=== PATIENT | female | born 1955 | race Caucasian/White ===

== ENCOUNTER 2017-01-10 09:30 | Inpatient (IN) | payer MEDICAID ==
[~2017-01-10] VITALS: Ht 165.1 cm; Wt 84.9 kg
[2017-01-10 10:18] LABS: Basophils # (auto) 0.2 uL; Basophils % (auto) 1.6 % (0.0-2.0); Eosinophils # (auto) 0 uL; Eosinophils % (auto) 0.1 % (0.0-7.0); Hematocrit 32.8 % (36.0-46.0); Hemoglobin 11.3 g/dL (12.2-16.2); Lymphocytes # (auto) 1.8 uL; Lymphocytes % (auto) 13.4 % (10.0-50.0); Mean Corpuscular Hemoglobin 31.3 pg (28.0-32.0); Mean Corpuscular Hgb Conc. 34.4 g/dL (32.0-36.0); Mean Corpuscular Volume 91.1 fL (80.0-100.0); Mean Platelet Volume 7.9 fL (7.4-10.4); Monocytes # (auto) 0.5 uL; Neutrophils # (auto) 10.7 uL; Neutrophils % (auto) 80.9 % (37.0-80.0); Platelet Count (auto) 617 10^3/uL (140-450); Red Cell Distribution Width 13.3 % (11.6-16.0); White Blood Cell 13.2 10^3/uL (4.4-10.8)
[2017-01-10] MEDS ORDERED: PROCHLORPERAZINE EDISYLATE 5 MG/ML 2ML VIAL IV ONE (10:30)
[2017-01-10] MEDS ORDERED: SODIUM CHLORIDE 0.9% 500 ML IVB ONE (10:30)
[2017-01-10] MEDS ORDERED: HYDROmorphone HCL 2 MG/ML VL IV ONE (10:30)
[2017-01-10] MEDS ORDERED: PANTOPRAZOLE SODIUM 40 MG/10 ML VIAL IV ONE ×3 (10:30→13:00)
[2017-01-10 10:43] LABS: Albumin 2.9 g/dL (3.4-5.0); Alkaline Phosphatase 91 U/L (45-117); Anion Gap 15 (5-15); Aspartate Aminotransferase 18 U/L (15-37); BUN/Creatinine Ratio 28.6; Bilirubin, Total 2.4 mg/dL (0.2-1.0); Blood Urea Nitrogen 16 mg/dL (7-18); Calcium 9.2 mg/dL (8.5-10.1); Carbon Dioxide 24 mmol/L (21-32); Chloride 100 mmol/L (98-107); GFR African American 142 mL/min; GFR Non-African American 118 mL/min; Glucose 110 mg/dL (74-106); Magnesium 2.2 mg/dL (1.6-2.6); Potassium 3.3 mmol/L (3.5-5.1); Sodium 139 mmol/L (136-145); Total Protein 7.5 g/dL (6.4-8.2)
[2017-01-10 11:20] LABS: Amylase 111 U/L (25-115)
[2017-01-10] MEDS ORDERED: NITROGLYCERIN 0.4 MG SL TAB SL PRN (12:30)
[2017-01-10] MEDS ORDERED: MORPHINE SULF INJ 2 MG/ML SYRINGE 1ML IV PRN (12:30)
[2017-01-10] MEDS: POTASSIUM CHL 20MEQ/100ML 100 ML IV SCH ×2 (12:30→21:10)
[2017-01-10] MEDS ORDERED: MORPHINE SULFATE 4 MG/ML SYRG IV PRN (12:30)
[2017-01-10] MEDS ORDERED: cefTRIAXone 1GM/50ML D5W 50 ML IV ONE (12:30)
[2017-01-10] MEDS: SODIUM CHLORIDE 0.9% 1,000 ML IV SCH ×2 (13:02→20:20)
[2017-01-10 13:38] LABS: INR 1.06 (0.9-1.15); Partial Thromboplastin Time 27.1 sec (22.64-33.71); Prothrombin Time 10.9 sec (9.37-12.3)
[2017-01-10] MEDS: PROMETHAZINE HCL 25 MG/ML 1ML IV PRN ×2 (14:42→22:37)
[2017-01-10 19:14] LABS: Hematocrit 32.1 % (36.0-46.0); Hemoglobin 10.8 g/dL (12.2-16.2)
[2017-01-10] MEDS: MORPHINE SULF INJ 2 MG/ML SYRINGE 1ML IV PRN ×2 (19:19→19:58)
[2017-01-10 20:30] VITALS: BP 127/71
[2017-01-10] MEDS: metroNIDAZOLE 500MG/100ML 100 ML IV SCH (20:59)
[2017-01-10] MEDS ORDERED: POTASSIUM CHL 20MEQ/100ML 100 ML IV ONE (21:02)
[2017-01-10 22:00] VITALS: BP 127/71
[2017-01-11] VITALS (7 sets, daily range): BP systolic 121–139; BP diastolic 64–75
[2017-01-11 01:40] LABS: Hematocrit 30.7 % (36.0-46.0); Hemoglobin 10.3 g/dL (12.2-16.2)
[2017-01-11 01:47] LABS: Urine Color Brown (Yellow); Urine Glucose Normal (Normal); Urine Mucus FEW (None Seen); Urine RBC 4 /hpf (0 - 4); Urine Squamous Epithelial Cell FEW /hpf (<5); Urine Urobilinogen Normal (Negative)
[2017-01-11 01:53] LABS: Urine Bilirubin 2+ (Negative); Urine Blood 1+ /uL (Negative); Urine Ketone 3+ (Negative); Urine Nitrite POSITIVE (Negative)
[2017-01-11] MEDS ORDERED: POTASSIUM CHL 20MEQ/100ML 100 ML IV ONE (02:15)
[2017-01-11] MEDS: POTASSIUM CHL 20MEQ/100ML 100 ML IV SCH (02:22)
[2017-01-11] MEDS: SODIUM CHLORIDE 0.9% 1,000 ML IV SCH ×4 (02:22→21:40)
[2017-01-11] MEDS: metroNIDAZOLE 500MG/100ML 100 ML IV SCH ×5 (03:28→20:45)
[2017-01-11 06:09] LABS: Basophils # (auto) 0.1 uL; Basophils % (auto) 0.5 % (0.0-2.0); Eosinophils # (auto) 0.1 uL; Eosinophils % (auto) 0.8 % (0.0-7.0); Hematocrit 31.2 % (36.0-46.0); Hemoglobin 10.4 g/dL (12.2-16.2); Lymphocytes # (auto) 1.8 uL; Lymphocytes % (auto) 16.3 % (10.0-50.0); Mean Corpuscular Hemoglobin 31.4 pg (28.0-32.0); Mean Corpuscular Hgb Conc. 33.5 g/dL (32.0-36.0); Mean Corpuscular Volume 93.6 fL (80.0-100.0); Monocytes # (auto) 0.7 uL; Monocytes % (auto) 6.5 % (0.0-12.0); Neutrophils # (auto) 8.6 uL; Neutrophils % (auto) 75.9 % (37.0-80.0); Platelet Count (auto) 555 10^3/uL (140-450); Red Cell Distribution Width 13.9 % (11.6-16.0); White Blood Cell 11.3 10^3/uL (4.4-10.8)
[2017-01-11 06:16] LABS: Albumin 2.8 g/dL (3.4-5.0); Calcium 8.2 mg/dL (8.5-10.1); Potassium 3.6 mmol/L (3.5-5.1)
[2017-01-11 06:18] LABS: BUN/Creatinine Ratio 36.1
[2017-01-11 06:21] LABS: Bilirubin, Total 4.6 mg/dL (0.2-1.0); Total Protein 6.8 g/dL (6.4-8.2)
[2017-01-11] MEDS: MORPHINE SULF INJ 2 MG/ML SYRINGE 1ML IV PRN ×3 (06:36→20:45)
[2017-01-11] MEDS: PROMETHAZINE HCL 25 MG/ML 1ML IV PRN ×4 (06:37→23:01)
[2017-01-11] MEDS ORDERED: cefTRIAXone 1GM/50ML D5W 50 ML IV SCH (09:00)
[2017-01-11] MEDS: PANTOPRAZOLE SODIUM 40 MG/10 ML VIAL IV SCH (10:00)
[2017-01-11] MEDS: cefTRIAXone 1GM/50ML D5W 50 ML IV SCH (12:31)
[2017-01-12] VITALS (7 sets, daily range): BP systolic 120–163; BP diastolic 65–87
[2017-01-12] MEDS: SODIUM CHLORIDE 0.9% 1,000 ML IV SCH ×4 (02:00→21:50)
[2017-01-12] MEDS: metroNIDAZOLE 500MG/100ML 100 ML IV SCH ×4 (02:29→21:24)
[2017-01-12 06:11] LABS: Basophils # (auto) 0.1 uL; Basophils % (auto) 0.5 % (0.0-2.0); Eosinophils # (auto) 0.1 uL; Eosinophils % (auto) 0.9 % (0.0-7.0); Hematocrit 28.7 % (36.0-46.0); Hemoglobin 9.6 g/dL (12.2-16.2); Lymphocytes # (auto) 1.3 uL; Lymphocytes % (auto) 11.5 % (10.0-50.0); Mean Corpuscular Hemoglobin 31.5 pg (28.0-32.0); Mean Corpuscular Hgb Conc. 33.3 g/dL (32.0-36.0); Mean Corpuscular Volume 94.6 fL (80.0-100.0); Monocytes # (auto) 0.6 uL; Monocytes % (auto) 5.7 % (0.0-12.0); Neutrophils # (auto) 9.2 uL; Neutrophils % (auto) 81.4 % (37.0-80.0); Platelet Count (auto) 478 10^3/uL (140-450); Red Cell Distribution Width 14.2 % (11.6-16.0); White Blood Cell 11.3 10^3/uL (4.4-10.8)
[2017-01-12 06:32] LABS: Calcium 7.4 mg/dL (8.5-10.1); Potassium 3.2 mmol/L (3.5-5.1)
[2017-01-12 06:35] LABS: Albumin 2.6 g/dL (3.4-5.0)
[2017-01-12 06:38] LABS: Bilirubin, Total 6.4 mg/dL (0.2-1.0); Total Protein 6.3 g/dL (6.4-8.2)
[2017-01-12] MEDS: PROMETHAZINE HCL 25 MG/ML 1ML IV PRN ×4 (06:39→21:25)
[2017-01-12] MEDS: PANTOPRAZOLE SODIUM 40 MG/10 ML VIAL IV SCH (09:04)
[2017-01-12 11:14] LABS: Magnesium 2.6 mg/dL (1.6-2.6); Phosphorus 1.7 mg/dL (2.5-4.90)
[2017-01-12] MEDS ORDERED: POTASSIUM CHLORIDE 40 MEQ, LIDOCAINE 1% (LOCAL ANESTH.) 4 ML in SODIUM CHL 0.9% 250 ML IV ONE (11:15)
[2017-01-12] MEDS: cefTRIAXone 1GM/50ML D5W 50 ML IV SCH (11:47)
[2017-01-12] MEDS ORDERED: SODIUM PHOSPH 40 MEQ (30MMOL) IN NS 250 ML IV ONE (12:00)
[2017-01-12] MEDS: MORPHINE SULF INJ 2 MG/ML SYRINGE 1ML IV PRN ×2 (16:22→21:24)
[2017-01-12] MEDS ORDERED: ACCU-CHEK COMFORT CURVE STRIP VI SCH (18:00)
[2017-01-12] MEDS ORDERED: DEXTROSE (50%) 50ML SYRG IV SCH (18:00)
[2017-01-12] MEDS ORDERED: InsuLIN REG 1unit/0.01ml Soln (100units/ml) SC SCH (18:00)
[2017-01-13] MEDS: MORPHINE SULF INJ 2 MG/ML SYRINGE 1ML IV PRN ×4 (01:46→21:52)
[2017-01-13] MEDS: PROMETHAZINE HCL 25 MG/ML 1ML IV PRN ×5 (01:47→20:41)
[2017-01-13] MEDS: metroNIDAZOLE 500MG/100ML 100 ML IV SCH ×4 (02:39→21:32)
[2017-01-13 05:00] VITALS: BP 136/72
[2017-01-13 05:30] LABS: Basophils # (auto) 0 uL; Basophils % (auto) 0.6 % (0.0-2.0); Eosinophils # (auto) 0.1 uL; Eosinophils % (auto) 1.5 % (0.0-7.0); Hematocrit 29.1 % (36.0-46.0); Hemoglobin 9.9 g/dL (12.2-16.2); Lymphocytes # (auto) 0.9 uL; Lymphocytes % (auto) 14.2 % (10.0-50.0); Mean Corpuscular Hemoglobin 31.9 pg (28.0-32.0); Mean Corpuscular Hgb Conc. 33.9 g/dL (32.0-36.0); Mean Corpuscular Volume 93.9 fL (80.0-100.0); Mean Platelet Volume 7.8 fL (7.4-10.4); Monocytes # (auto) 0.6 uL; Monocytes % (auto) 8.5 % (0.0-12.0); Neutrophils % (auto) 75.2 % (37.0-80.0); Platelet Count (auto) 455 10^3/uL (140-450); Red Cell Distribution Width 14.4 % (11.6-16.0); White Blood Cell 6.7 10^3/uL (4.4-10.8)
[2017-01-13 05:47] LABS: Potassium 3.1 mmol/L (3.5-5.1)
[2017-01-13 05:53] LABS: Albumin 2.7 g/dL (3.4-5.0); BUN/Creatinine Ratio 30.6; Calcium 7.7 mg/dL (8.5-10.1)
[2017-01-13 05:55] LABS: Total Protein 6.3 g/dL (6.4-8.2)
[2017-01-13] MEDS: SODIUM CHLORIDE 0.9% 1,000 ML IV SCH ×3 (06:11→20:42)
[2017-01-13 09:00] VITALS: BP 129/70
[2017-01-13] MEDS ORDERED: POTASSIUM CHLORIDE 40 MEQ, LIDOCAINE 1% (LOCAL ANESTH.) 4 ML in SODIUM CHL 0.9% 250 ML IV ONE (09:00)
[2017-01-13] MEDS ORDERED: GASTROGRAFIN 120 ML SOL ONE (09:18)
[2017-01-13] MEDS ORDERED: TPN PER PHARMACY 0 ML IV SCH (09:30)
[2017-01-13] MEDS ORDERED: DEXTROSE (50%) 50ML SYRG IV SCH ×2 (09:45→11:45)
[2017-01-13] MEDS: MUPIROCIN 2% OINT 22GM TOP SCH ×2 (11:27→21:43)
[2017-01-13] MEDS: PANTOPRAZOLE SODIUM 40 MG/10 ML VIAL IV SCH (11:27)
[2017-01-13] MEDS ORDERED: ACCU-CHEK COMFORT CURVE STRIP VI SCH (12:00)
[2017-01-13] MEDS ORDERED: InsuLIN REG 1unit/0.01ml Soln (100units/ml) SC SCH (12:00)
[2017-01-13 12:55] VITALS: BP 138/73
[2017-01-13] MEDS ORDERED: POTASSIUM PHOSP 22MEQ(15MMOLE) in NS 100 ML IV ONE (14:00)
[2017-01-13] MEDS: cefTRIAXone 1GM/50ML D5W 50 ML IV SCH (14:59)
[2017-01-13 16:50] VITALS: BP 135/76
[2017-01-13] MEDS: InsuLIN REG 1unit/0.01ml Soln (100units/ml) SC SCH ×2 (18:00→23:44)
[2017-01-13] MEDS: ACCU-CHEK COMFORT CURVE STRIP VI SCH ×2 (18:20→23:44)
[2017-01-13] MEDS ORDERED: CLINIMIX PER PHARMACY IV NR ×6 (20:00)
[2017-01-13 22:00] VITALS: BP 110/77
[2017-01-14] MEDS: metroNIDAZOLE 500MG/100ML 100 ML IV SCH ×4 (03:10→20:50)
[2017-01-14] MEDS: PROMETHAZINE HCL 25 MG/ML 1ML IV PRN ×5 (03:11→21:20)
[2017-01-14] MEDS: MORPHINE SULF INJ 2 MG/ML SYRINGE 1ML IV PRN ×5 (03:23→21:20)
[2017-01-14 05:00] VITALS: BP 148/74
[2017-01-14] MEDS: SODIUM CHLORIDE 0.9% 1,000 ML IV SCH ×3 (05:27→21:07)
[2017-01-14] MEDS: ACCU-CHEK COMFORT CURVE STRIP VI SCH ×4 (05:34→23:58)
[2017-01-14] MEDS: InsuLIN REG 1unit/0.01ml Soln (100units/ml) SC SCH ×4 (05:42→23:58)
[2017-01-14 06:31] LABS: Basophils # (auto) 0 uL; Basophils % (auto) 0.4 % (0.0-2.0); Eosinophils # (auto) 0.2 uL; Hematocrit 30.7 % (36.0-46.0); Hemoglobin 10.2 g/dL (12.2-16.2); Lymphocytes # (auto) 1.4 uL; Lymphocytes % (auto) 15.2 % (10.0-50.0); Mean Corpuscular Hemoglobin 31.2 pg (28.0-32.0); Mean Corpuscular Hgb Conc. 33.3 g/dL (32.0-36.0); Mean Corpuscular Volume 93.9 fL (80.0-100.0); Mean Platelet Volume 7.8 fL (7.4-10.4); Monocytes # (auto) 0.5 uL; Monocytes % (auto) 5.4 % (0.0-12.0); Neutrophils # (auto) 6.8 uL; Platelet Count (auto) 489 10^3/uL (140-450); Red Cell Distribution Width 14.7 % (11.6-16.0); White Blood Cell 8.9 10^3/uL (4.4-10.8)
[2017-01-14 07:38] LABS: Albumin 2.7 g/dL (3.4-5.0); BUN/Creatinine Ratio 44.9; Bilirubin, Total 3.9 mg/dL (0.2-1.0); Calcium 8.2 mg/dL (8.5-10.1); Magnesium 2.6 mg/dL (1.6-2.6); Phosphorus 1.9 mg/dL (2.5-4.90); Potassium 3.5 mmol/L (3.5-5.1); Total Protein 6.6 g/dL (6.4-8.2)
[2017-01-14] MEDS ORDERED: POTASSIUM PHOSP 22MEQ(15MMOLE) in NS 100 ML IV ONE (08:30)
[2017-01-14 08:58] VITALS: BP 157/73
[2017-01-14] MEDS: PANTOPRAZOLE SODIUM 40 MG/10 ML VIAL IV SCH (10:29)
[2017-01-14] MEDS: MUPIROCIN 2% OINT 22GM TOP SCH ×2 (10:29→21:06)
[2017-01-14] MEDS: ERTAPENEM 1GM IN NS 50 ML IV SCH (11:56)
[2017-01-14] MEDS ORDERED: AMPICILLIN SOD 2GM INJ 2 GM in SODIUM CHL 0.9% 100 ML IV SCH (12:00)
[2017-01-14 13:00] VITALS: BP 147/72
[2017-01-14] MEDS ORDERED: LIDOCAINE 1% HCL (LOCAL ANESTH.) INJ 20ML MDV ID ONE (14:15)
[2017-01-14 17:00] VITALS: BP 120/70
[2017-01-14] MEDS ORDERED: CLINIMIX PER PHARMACY IV NR ×6 (20:00)
[2017-01-14] MEDS: SODIUM CHLOR 0.9% PF (SALINE LOCK) 10ML VIAL IV SCH (20:51)
[2017-01-14 21:51] VITALS: BP 115/67
[2017-01-15] MEDS: PROMETHAZINE HCL 25 MG/ML 1ML IV PRN ×5 (03:00→20:32)
[2017-01-15] MEDS: MORPHINE SULF INJ 2 MG/ML SYRINGE 1ML IV PRN ×5 (03:30→20:33)
[2017-01-15] MEDS: metroNIDAZOLE 500MG/100ML 100 ML IV SCH ×4 (03:39→23:19)
[2017-01-15 05:09] VITALS: BP 108/68
[2017-01-15] MEDS: InsuLIN REG 1unit/0.01ml Soln (100units/ml) SC SCH ×3 (05:48→17:22)
[2017-01-15] MEDS: ACCU-CHEK COMFORT CURVE STRIP VI SCH ×3 (05:48→17:22)
[2017-01-15 05:56] LABS: Basophils # (auto) 0 uL; Basophils % (auto) 0.6 % (0.0-2.0); DEFINITIVE VIEW TRANSMISSION; Eosinophils # (auto) 0.2 uL; Eosinophils % (auto) 2.6 % (0.0-7.0); Hematocrit 24.9 % (36.0-46.0); Hemoglobin 8.1 g/dL (12.2-16.2); Lymphocytes # (auto) 1.4 uL; Lymphocytes % (auto) 17.2 % (10.0-50.0); Mean Corpuscular Hemoglobin 31.1 pg (28.0-32.0); Mean Corpuscular Hgb Conc. 32.3 g/dL (32.0-36.0); Mean Corpuscular Volume 96.1 fL (80.0-100.0); Mean Platelet Volume 7.6 fL (7.4-10.4); Monocytes # (auto) 0.3 uL; Neutrophils # (auto) 6.1 uL; Neutrophils % (auto) 75.6 % (37.0-80.0); Platelet Count (auto) 315 10^3/uL (140-450); Red Cell Distribution Width 15.2 % (11.6-16.0); White Blood Cell 8.1 10^3/uL (4.4-10.8)
[2017-01-15 08:34] LABS: Potassium 3.9 mmol/L (3.5-5.1)
[2017-01-15 08:38] LABS: Albumin 2.5 g/dL (3.4-5.0); BUN/Creatinine Ratio 38.1; Calcium 7.5 mg/dL (8.5-10.1)
[2017-01-15 08:41] LABS: Total Protein 6.1 g/dL (6.4-8.2)
[2017-01-15] MEDS: SODIUM CHLORIDE 0.9% 1,000 ML IV SCH ×3 (08:45→23:21)
[2017-01-15 09:00] VITALS: BP 122/74
[2017-01-15] MEDS: PANTOPRAZOLE SODIUM 40 MG/10 ML VIAL IV SCH (10:14)
[2017-01-15] MEDS: SODIUM CHLOR 0.9% PF (SALINE LOCK) 10ML VIAL IV SCH ×2 (10:14→23:19)
[2017-01-15] MEDS: MUPIROCIN 2% OINT 22GM TOP SCH ×2 (10:14→23:19)
[2017-01-15] MEDS: ERTAPENEM 1GM IN NS 50 ML IV SCH (11:24)
[2017-01-15 12:02] LABS: Phosphorus 2.3 mg/dL (2.5-4.90)
[2017-01-15 12:47] VITALS: BP 102/67
[2017-01-15 16:40] VITALS: BP 119/78
[2017-01-15] MEDS ORDERED: TPN PER PHARMACY IV NR ×8 (20:00)
[2017-01-15 22:00] VITALS: BP 110/91
[2017-01-15] MEDS ORDERED: ENOXAPARIN SOD 60 MG/0.6 ML SYRINGE SC ONE (22:00)
[2017-01-16] MEDS: ACCU-CHEK COMFORT CURVE STRIP VI SCH ×5 (00:16→23:52)
[2017-01-16] MEDS: MORPHINE SULF INJ 2 MG/ML SYRINGE 1ML IV PRN ×5 (00:31→18:45)
[2017-01-16] MEDS: PROMETHAZINE HCL 25 MG/ML 1ML IV PRN ×5 (00:31→18:45)
[2017-01-16] MEDS: InsuLIN REG 1unit/0.01ml Soln (100units/ml) SC SCH ×5 (00:32→23:57)
[2017-01-16] MEDS: metroNIDAZOLE 500MG/100ML 100 ML IV SCH ×4 (04:38→20:43)
[2017-01-16 05:00] VITALS: BP 115/74
[2017-01-16] MEDS: SODIUM CHLORIDE 0.9% 1,000 ML IV SCH ×2 (05:55→17:02)
[2017-01-16 09:00] VITALS: BP 107/49
[2017-01-16] MEDS: PANTOPRAZOLE SODIUM 40 MG/10 ML VIAL IV SCH (09:13)
[2017-01-16] MEDS: SODIUM CHLOR 0.9% PF (SALINE LOCK) 10ML VIAL IV SCH ×2 (09:14→20:44)
[2017-01-16] MEDS: MUPIROCIN 2% OINT 22GM TOP SCH ×2 (09:14→20:52)
[2017-01-16] MEDS: ERTAPENEM 1GM IN NS 50 ML IV SCH (11:00)
[2017-01-16 11:04] LABS: Basophils # (auto) 0 uL; Basophils % (auto) 0.2 % (0.0-2.0); Eosinophils # (auto) 0.2 uL; Hematocrit 30.6 % (36.0-46.0); Hemoglobin 9.8 g/dL (12.2-16.2); Lymphocytes # (auto) 1.6 uL; Lymphocytes % (auto) 15.7 % (10.0-50.0); Mean Corpuscular Hemoglobin 31.5 pg (28.0-32.0); Mean Corpuscular Hgb Conc. 32.1 g/dL (32.0-36.0); Mean Corpuscular Volume 98.3 fL (80.0-100.0); Mean Platelet Volume 7.9 fL (7.4-10.4); Monocytes # (auto) 0.1 uL; Monocytes % (auto) 1.3 % (0.0-12.0); Neutrophils # (auto) 8.3 uL; Neutrophils % (auto) 80.8 % (37.0-80.0); Platelet Count (auto) 351 10^3/uL (140-450); Red Cell Distribution Width 16.1 % (11.6-16.0); White Blood Cell 10.3 10^3/uL (4.4-10.8)
[2017-01-16 13:00] VITALS: BP 125/73
[2017-01-16 14:10] LABS: BUN/Creatinine Ratio 22.4; Calcium 7.5 mg/dL (8.5-10.1); Phosphorus 1.8 mg/dL (2.5-4.90); Potassium 4.2 mmol/L (3.5-5.1)
[2017-01-16 14:11] LABS: Albumin 2.3 g/dL (3.4-5.0); Bilirubin, Total 2.6 mg/dL (0.2-1.0); Total Protein 5.9 g/dL (6.4-8.2)
[2017-01-16 16:43] VITALS: BP 125/73
[2017-01-16] MEDS ORDERED: TPN PER PHARMACY IV NR ×10 (20:00)
[2017-01-16 21:50] VITALS: BP 108/63
[2017-01-17] MEDS: PROMETHAZINE HCL 25 MG/ML 1ML IV PRN ×4 (00:50→20:31)
[2017-01-17] MEDS: MORPHINE SULF INJ 2 MG/ML SYRINGE 1ML IV PRN ×4 (00:55→20:30)
[2017-01-17] MEDS: SODIUM CHLORIDE 0.9% 1,000 ML IV SCH ×2 (01:53→20:45)
[2017-01-17] MEDS: metroNIDAZOLE 500MG/100ML 100 ML IV SCH ×4 (03:15→20:45)
[2017-01-17 04:52] VITALS: BP 119/73
[2017-01-17] MEDS: ACCU-CHEK COMFORT CURVE STRIP VI SCH ×3 (06:42→17:43)
[2017-01-17] MEDS: InsuLIN REG 1unit/0.01ml Soln (100units/ml) SC SCH ×3 (06:45→17:45)
[2017-01-17 07:15] LABS: Basophils # (auto) 0 uL; Basophils % (auto) 0.4 % (0.0-2.0); Eosinophils # (auto) 0.3 uL; Eosinophils % (auto) 2.9 % (0.0-7.0); Hematocrit 30.6 % (36.0-46.0); Lymphocytes # (auto) 1.6 uL; Lymphocytes % (auto) 14.4 % (10.0-50.0); Mean Corpuscular Hemoglobin 31.8 pg (28.0-32.0); Mean Corpuscular Hgb Conc. 32.6 g/dL (32.0-36.0); Mean Corpuscular Volume 97.5 fL (80.0-100.0); Mean Platelet Volume 8.4 fL (7.4-10.4); Monocytes # (auto) 0.5 uL; Monocytes % (auto) 4.4 % (0.0-12.0); Neutrophils # (auto) 8.5 uL; Neutrophils % (auto) 77.9 % (37.0-80.0); Platelet Count (auto) 327 10^3/uL (140-450); Red Cell Distribution Width 15.6 % (11.6-16.0); White Blood Cell 10.9 10^3/uL (4.4-10.8)
[2017-01-17 08:51] LABS: Albumin 2.3 g/dL (3.4-5.0); BUN/Creatinine Ratio 20.8; Bilirubin, Total 2.6 mg/dL (0.2-1.0); Calcium 7.8 mg/dL (8.5-10.1); Total Protein 5.9 g/dL (6.4-8.2)
[2017-01-17 09:00] VITALS: BP 113/61
[2017-01-17] MEDS: PANTOPRAZOLE SODIUM 40 MG/10 ML VIAL IV SCH (09:29)
[2017-01-17] MEDS: SODIUM CHLOR 0.9% PF (SALINE LOCK) 10ML VIAL IV SCH ×2 (09:30→20:45)
[2017-01-17] MEDS: MUPIROCIN 2% OINT 22GM TOP SCH ×2 (09:30→20:45)
[2017-01-17] MEDS ORDERED: SODIUM CHLORIDE 0.9% 1,000 ML IV SCH (10:15)
[2017-01-17] MEDS: ERTAPENEM 1GM IN NS 50 ML IV SCH (11:11)
[2017-01-17 13:00] VITALS: BP 94/52
[2017-01-17 17:00] VITALS: BP 126/72
[2017-01-17] MEDS ORDERED: TPN PER PHARMACY IV NR ×10 (20:00)
[2017-01-17 22:00] VITALS: BP 125/70
[2017-01-18] MEDS: ACCU-CHEK COMFORT CURVE STRIP VI SCH ×4 (00:05→18:16)
[2017-01-18] MEDS: InsuLIN REG 1unit/0.01ml Soln (100units/ml) SC SCH ×4 (00:06→18:16)
[2017-01-18] MEDS: MORPHINE SULF INJ 2 MG/ML SYRINGE 1ML IV PRN ×5 (02:47→20:28)
[2017-01-18] MEDS: metroNIDAZOLE 500MG/100ML 100 ML IV SCH ×4 (02:48→20:34)
[2017-01-18] MEDS: PROMETHAZINE HCL 25 MG/ML 1ML IV PRN ×5 (02:48→20:27)
[2017-01-18 05:00] VITALS: BP 109/69
[2017-01-18 06:28] LABS: Basophils # (auto) 0.1 uL; Basophils % (auto) 0.6 % (0.0-2.0); Eosinophils # (auto) 0.3 uL; Eosinophils % (auto) 2.7 % (0.0-7.0); Hematocrit 31.1 % (36.0-46.0); Hemoglobin 10.5 g/dL (12.2-16.2); Lymphocytes # (auto) 1.8 uL; Lymphocytes % (auto) 16.2 % (10.0-50.0); Mean Corpuscular Hemoglobin 31.4 pg (28.0-32.0); Mean Corpuscular Hgb Conc. 33.8 g/dL (32.0-36.0); Mean Corpuscular Volume 92.8 fL (80.0-100.0); Mean Platelet Volume 8.2 fL (7.4-10.4); Monocytes # (auto) 0.5 uL; Monocytes % (auto) 4.3 % (0.0-12.0); Neutrophils # (auto) 8.4 uL; Neutrophils % (auto) 76.2 % (37.0-80.0); Platelet Count (auto) 315 10^3/uL (140-450); Red Cell Distribution Width 14.8 % (11.6-16.0)
[2017-01-18 06:57] LABS: Albumin 2.3 g/dL (3.4-5.0); BUN/Creatinine Ratio 21.3; Bilirubin, Total 2.3 mg/dL (0.2-1.0); Calcium 7.7 mg/dL (8.5-10.1); Potassium 4.4 mmol/L (3.5-5.1)
[2017-01-18] MEDS: SODIUM CHLORIDE 0.9% 1,000 ML IV SCH ×2 (08:41→20:40)
[2017-01-18 08:45] VITALS: BP 124/61
[2017-01-18 09:49] LABS: Magnesium 2.3 mg/dL (1.6-2.6); Phosphorus 3.1 mg/dL (2.5-4.90)
[2017-01-18] MEDS: PANTOPRAZOLE SODIUM 40 MG/10 ML VIAL IV SCH (10:24)
[2017-01-18] MEDS: ERTAPENEM 1GM IN NS 50 ML IV SCH (10:25)
[2017-01-18] MEDS: SODIUM CHLOR 0.9% PF (SALINE LOCK) 10ML VIAL IV SCH ×2 (10:26→22:14)
[2017-01-18] MEDS: APIXABAN 5 MG TAB PO SCH ×2 (12:20→22:14)
[2017-01-18 14:35] VITALS: BP 99/66
[2017-01-18 16:43] VITALS: BP 117/76
[2017-01-18] MEDS: TPN PER PHARMACY IV NR ×10 (20:27)
[2017-01-18 22:00] VITALS: BP 109/63
[2017-01-19] MEDS: ACCU-CHEK COMFORT CURVE STRIP VI SCH ×3 (00:40→12:02)
[2017-01-19] MEDS: InsuLIN REG 1unit/0.01ml Soln (100units/ml) SC SCH ×3 (00:46→12:00)
[2017-01-19] MEDS: PROMETHAZINE HCL 25 MG/ML 1ML IV PRN ×5 (01:27→20:16)
[2017-01-19] MEDS: MORPHINE SULF INJ 2 MG/ML SYRINGE 1ML IV PRN ×5 (01:27→20:16)
[2017-01-19] MEDS: metroNIDAZOLE 500MG/100ML 100 ML IV SCH ×4 (03:42→22:07)
[2017-01-19 05:00] VITALS: BP 96/64
[2017-01-19 06:31] LABS: Basophils # (auto) 0 uL; Basophils % (auto) 0.4 % (0.0-2.0); Eosinophils # (auto) 0.3 uL; Eosinophils % (auto) 3.4 % (0.0-7.0); Hematocrit 32.5 % (36.0-46.0); Hemoglobin 10.7 g/dL (12.2-16.2); Lymphocytes # (auto) 1.7 uL; Lymphocytes % (auto) 19.1 % (10.0-50.0); Mean Corpuscular Hemoglobin 30.8 pg (28.0-32.0); Mean Corpuscular Hgb Conc. 32.9 g/dL (32.0-36.0); Mean Corpuscular Volume 93.6 fL (80.0-100.0); Mean Platelet Volume 8.5 fL (7.4-10.4); Monocytes # (auto) 0.5 uL; Monocytes % (auto) 5.8 % (0.0-12.0); Neutrophils # (auto) 6.5 uL; Neutrophils % (auto) 71.3 % (37.0-80.0); Platelet Count (auto) 370 10^3/uL (140-450); Red Cell Distribution Width 15.4 % (11.6-16.0); White Blood Cell 9.1 10^3/uL (4.4-10.8)
[2017-01-19 07:05] LABS: Albumin 2.5 g/dL (3.4-5.0); BUN/Creatinine Ratio 22.2; Bilirubin, Total 1.8 mg/dL (0.2-1.0); Magnesium 2.5 mg/dL (1.6-2.6); Phosphorus 2.9 mg/dL (2.5-4.90); Potassium 4.6 mmol/L (3.5-5.1)
[2017-01-19 08:00] VITALS: BP 106/58
[2017-01-19] MEDS: SODIUM CHLOR 0.9% PF (SALINE LOCK) 10ML VIAL IV SCH ×2 (10:00→22:13)
[2017-01-19] MEDS: PANTOPRAZOLE 40 MG TAB PO SCH (10:36)
[2017-01-19] MEDS: APIXABAN 5 MG TAB PO SCH ×2 (10:36→22:07)
[2017-01-19] MEDS: ERTAPENEM 1GM IN NS 50 ML IV SCH (10:43)
[2017-01-19 13:00] VITALS: BP 112/66
[2017-01-19 16:30] VITALS: BP 102/60
[2017-01-19] MEDS: TPN PER PHARMACY IV NR ×10 (19:59)
[2017-01-19 20:00] VITALS: BP 118/67
[2017-01-19] MEDS ORDERED: TPN PER PHARMACY IV NR ×10 (20:00)
[2017-01-19] MEDS: LORazepam 2MG/ML-1ML VIAL IV PRN (22:08)
[2017-01-20] MEDS: metroNIDAZOLE 500MG/100ML 100 ML IV SCH (03:40)
[2017-01-20 05:00] VITALS: BP 108/48
[2017-01-20] MEDS: LORazepam 2MG/ML-1ML VIAL IV PRN (05:22)
[2017-01-20 05:24] LABS: Basophils # (auto) 0.1 uL; Basophils % (auto) 1.5 % (0.0-2.0); Eosinophils # (auto) 0.2 uL; Eosinophils % (auto) 2.7 % (0.0-7.0); Hematocrit 27.2 % (36.0-46.0); Hemoglobin 8.9 g/dL (12.2-16.2); Lymphocytes # (auto) 1.6 uL; Lymphocytes % (auto) 21.3 % (10.0-50.0); Mean Corpuscular Hemoglobin 31.1 pg (28.0-32.0); Mean Corpuscular Hgb Conc. 32.8 g/dL (32.0-36.0); Mean Corpuscular Volume 94.8 fL (80.0-100.0); Mean Platelet Volume 8.4 fL (7.4-10.4); Monocytes # (auto) 0.4 uL; Monocytes % (auto) 5.1 % (0.0-12.0); Neutrophils # (auto) 5.1 uL; Neutrophils % (auto) 69.4 % (37.0-80.0); Platelet Count (auto) 298 10^3/uL (140-450); Red Cell Distribution Width 15.1 % (11.6-16.0); White Blood Cell 7.4 10^3/uL (4.4-10.8)
[2017-01-20 05:47] LABS: Albumin 2.4 g/dL (3.4-5.0); BUN/Creatinine Ratio 22.4; Bilirubin, Total 1.7 mg/dL (0.2-1.0); Calcium 7.6 mg/dL (8.5-10.1); Magnesium 2.3 mg/dL (1.6-2.6); Phosphorus 2.7 mg/dL (2.5-4.90); Potassium 4.4 mmol/L (3.5-5.1); Total Protein 5.9 g/dL (6.4-8.2)
[2017-01-20 09:00] VITALS: BP 97/57
[2017-01-20] MEDS: SODIUM CHLOR 0.9% PF (SALINE LOCK) 10ML VIAL IV SCH ×2 (09:02→21:13)
[2017-01-20] MEDS: PANTOPRAZOLE 40 MG TAB PO SCH (09:02)
[2017-01-20] MEDS: ERTAPENEM 1GM IN NS 50 ML IV SCH (10:47)
[2017-01-20 13:00] VITALS: BP 109/56
[2017-01-20] MEDS: MORPHINE SULF INJ 2 MG/ML SYRINGE 1ML IV PRN ×3 (13:00→21:14)
[2017-01-20] MEDS: PROMETHAZINE HCL 25 MG/ML 1ML IV PRN ×3 (13:00→21:14)
[2017-01-20 16:36] VITALS: BP 103/46
[2017-01-20 22:00] VITALS: BP 108/57
[2017-01-21] MEDS: MORPHINE SULF INJ 2 MG/ML SYRINGE 1ML IV PRN ×3 (01:14→21:41)
[2017-01-21] MEDS: PROMETHAZINE HCL 25 MG/ML 1ML IV PRN ×3 (01:14→21:41)
[2017-01-21 05:00] VITALS: BP 101/68
[2017-01-21 07:16] LABS: Basophils # (auto) 0.1 uL; Basophils % (auto) 0.8 % (0.0-2.0); Eosinophils # (auto) 0.2 uL; Eosinophils % (auto) 2.4 % (0.0-7.0); Hematocrit 31.8 % (36.0-46.0); Hemoglobin 10.4 g/dL (12.2-16.2); Lymphocytes # (auto) 1.6 uL; Lymphocytes % (auto) 19.8 % (10.0-50.0); Mean Corpuscular Hemoglobin 30.8 pg (28.0-32.0); Mean Corpuscular Hgb Conc. 32.9 g/dL (32.0-36.0); Mean Corpuscular Volume 93.7 fL (80.0-100.0); Mean Platelet Volume 8.6 fL (7.4-10.4); Monocytes # (auto) 0.5 uL; Monocytes % (auto) 6.6 % (0.0-12.0); Neutrophils # (auto) 5.7 uL; Neutrophils % (auto) 70.4 % (37.0-80.0); Platelet Count (auto) 383 10^3/uL (140-450); Red Cell Distribution Width 14.7 % (11.6-16.0); White Blood Cell 8.1 10^3/uL (4.4-10.8)
[2017-01-21 07:18] LABS: Albumin 2.5 g/dL (3.4-5.0); BUN/Creatinine Ratio 18.2; Calcium 7.7 mg/dL (8.5-10.1); Potassium 3.9 mmol/L (3.5-5.1)
[2017-01-21 07:21] LABS: Bilirubin, Total 1.4 mg/dL (0.2-1.0); Total Protein 6.2 g/dL (6.4-8.2)
[2017-01-21 09:00] VITALS: BP 110/71
[2017-01-21] MEDS: SODIUM CHLOR 0.9% PF (SALINE LOCK) 10ML VIAL IV SCH ×2 (10:25→21:49)
[2017-01-21] MEDS: PANTOPRAZOLE 40 MG TAB PO SCH (11:27)
[2017-01-21] MEDS: ERTAPENEM 1GM IN NS 50 ML IV SCH (11:27)
[2017-01-21] MEDS: APIXABAN 5 MG TAB PO SCH ×2 (12:22→21:42)
[2017-01-21 13:00] VITALS: BP 106/65
[2017-01-21 17:00] VITALS: BP 102/69
[2017-01-21 22:00] VITALS: BP 104/54
[2017-01-22] MEDS: MORPHINE SULF INJ 2 MG/ML SYRINGE 1ML IV PRN ×4 (01:30→18:25)
[2017-01-22] MEDS: PROMETHAZINE HCL 25 MG/ML 1ML IV PRN ×4 (01:31→18:25)
[2017-01-22 05:05] VITALS: BP 98/56
[2017-01-22 07:26] LABS: Basophils # (auto) 0.1 uL; Basophils % (auto) 0.7 % (0.0-2.0); Eosinophils # (auto) 0.2 uL; Eosinophils % (auto) 1.8 % (0.0-7.0); Hematocrit 33.1 % (36.0-46.0); Hemoglobin 10.8 g/dL (12.2-16.2); Lymphocytes # (auto) 1.7 uL; Lymphocytes % (auto) 20.4 % (10.0-50.0); Mean Corpuscular Hemoglobin 30.6 pg (28.0-32.0); Mean Corpuscular Hgb Conc. 32.6 g/dL (32.0-36.0); Mean Corpuscular Volume 93.8 fL (80.0-100.0); Mean Platelet Volume 8.7 fL (7.4-10.4); Monocytes # (auto) 0.5 uL; Monocytes % (auto) 5.8 % (0.0-12.0); Neutrophils % (auto) 71.3 % (37.0-80.0); Platelet Count (auto) 434 10^3/uL (140-450); Red Cell Distribution Width 14.7 % (11.6-16.0); White Blood Cell 8.4 10^3/uL (4.4-10.8)
[2017-01-22 07:33] LABS: BUN/Creatinine Ratio 20.8; Calcium 7.9 mg/dL (8.5-10.1)
[2017-01-22 08:14] VITALS: BP 107/66
[2017-01-22] MEDS: ERTAPENEM 1GM IN NS 50 ML IV SCH (10:47)
[2017-01-22] MEDS: SODIUM CHLOR 0.9% PF (SALINE LOCK) 10ML VIAL IV SCH (10:47)
[2017-01-22] MEDS: PANTOPRAZOLE 40 MG TAB PO SCH (10:47)
[2017-01-22] MEDS: APIXABAN 5 MG TAB PO SCH (11:02)
[2017-01-22 13:25] VITALS: BP 111/79
[2017-01-22 17:20] VITALS: BP 109/61
== END 2017-01-22 18:40 | disposition home or self-care (01) | DRG 247 ==
LOC: ER 09:30 → TELE-E-ADS 09:31 → TELE-WESTW 19:50
PROVIDERS: ADMIT Internal Medicine; ATTEND Internal Medicine
PROC: 02HV33Z Insertion of Infusion Device into Superior Vena Cava, Percutaneous Approach (ICD-10-PCS; 2017-01-14)
PROC: 0W9F30Z Drainage of Abdominal Wall with Drainage Device, Percutaneous Approach (ICD-10-PCS; principal; 2017-01-20)
DX: K56.60 Unspecified intestinal obstruction (principal); K66.1 Hemoperitoneum; E43 Unspecified severe protein-calorie malnutrition; K85.90 Acute pancreatitis without necrosis or infection, unspecified; E87.0 Hyperosmolality and hypernatremia; R18.8 Other ascites; S30.1XXA Contusion of abdominal wall, initial encounter; D64.9 Anemia, unspecified; I82.491 Acute embolism and thrombosis of other specified deep vein of right lower extremity; K76.0 Fatty (change of) liver, not elsewhere classified; N39.0 Urinary tract infection, site not specified; E66.01 Morbid (severe) obesity due to excess calories; K56.0 Paralytic ileus; K92.2 Gastrointestinal hemorrhage, unspecified; E80.4 Gilbert syndrome; B96.20 Unspecified Escherichia coli [E. coli] as the cause of diseases classified elsewhere; Z90.710 Acquired absence of both cervix and uterus; Z87.891 Personal history of nicotine dependence; Z90.721 Acquired absence of ovaries, unilateral; Z79.01 Long term (current) use of anticoagulants; Z98.890 Other specified postprocedural states; Z68.31 Body mass index [BMI] 31.0-31.9, adult
CPT/HCPCS: 36415; 36569; 71010; 74176; 74250; 76705; 76942; 80048; 80053; 81001; 82040; 82150; 82378; 82962; 83690; 83735; 84100; 84478; 84484; 85014; 85018; 85025; 85045; 85610; 85652; 85730; 86141; 86850; 86900; 86901; 87040; 87081; 87086; 87088; 87186; 87205; 87493; 93005; 93971; 96365; 96375; 97001; 97110; 97116; 97530; C9113; J0696; J1335; J1815; J2001; J3480; J3490

== ENCOUNTER 2017-01-26 08:29 | Emergency (ER) | payer MEDICAID ==
[~2017-01-26] VITALS: Ht 157.5 cm; Wt 79.4 kg
[2017-01-26 09:13] LABS: Basophils # (auto) 0.1 uL; Basophils % (auto) 1.5 % (0.0-2.0); Eosinophils # (auto) 0.2 uL; Hematocrit 37.3 % (36.0-46.0); Hemoglobin 12.3 g/dL (12.2-16.2); Lymphocytes # (auto) 1.7 uL; Lymphocytes % (auto) 28.1 % (10.0-50.0); Mean Corpuscular Hemoglobin 30.5 pg (28.0-32.0); Mean Corpuscular Hgb Conc. 33.1 g/dL (32.0-36.0); Mean Corpuscular Volume 92.2 fL (80.0-100.0); Monocytes # (auto) 0.3 uL; Monocytes % (auto) 4.6 % (0.0-12.0); Neutrophils # (auto) 3.9 uL; Neutrophils % (auto) 62.8 % (37.0-80.0); Platelet Count (auto) 661 10^3/uL (140-450); Red Cell Distribution Width 14.4 % (11.6-16.0); White Blood Cell 6.2 10^3/uL (4.4-10.8)
[2017-01-26] MEDS ORDERED: IOHEXOL 350 MG/ML 100ML IJ ONE (09:28)
[2017-01-26 09:37] LABS: Albumin 3.1 g/dL (3.4-5.0); Aspartate Aminotransferase 32 U/L (15-37); BUN/Creatinine Ratio 19.4; Blood Urea Nitrogen 12 mg/dL (7-18); Calcium 8.6 mg/dL (8.5-10.1); Carbon Dioxide 21 mmol/L (21-32); GFR African American 127 mL/min; GFR Non-African American 105 mL/min; Glucose 119 mg/dL (74-106); Magnesium 2.3 mg/dL (1.6-2.6)
[2017-01-26 09:42] LABS: Alkaline Phosphatase 143 U/L (45-117); Anion Gap 9 (5-15); Bilirubin, Total 1.2 mg/dL (0.2-1.0); Chloride 108 mmol/L (98-107); Potassium 4.2 mmol/L (3.5-5.1); Sodium 138 mmol/L (136-145); Total Protein 7.4 g/dL (6.4-8.2)
[2017-01-26] MEDS ORDERED: SODIUM CHLORIDE 0.9% 1,000 ML IV ONE (10:30)
[2017-01-26] MEDS ORDERED: ENOXAPARIN SOD 80 MG/0.8ML SYRINGE SC ONE (10:30)
[2017-01-26 16:03] LABS: Urine Bilirubin Negative (Negative); Urine Blood Negative /uL (Negative); Urine Color Yellow (Yellow); Urine Glucose Normal (Normal); Urine Ketone Negative (Negative); Urine Mucus FEW (None Seen); Urine Nitrite Negative (Negative); Urine RBC <1 /hpf (0 - 4); Urine Squamous Epithelial Cell FEW /hpf (<5); Urine Urobilinogen Normal (Negative); Urine pH 6.5 (5.0-8.0)
[2017-01-26 16:51] VITALS: BP 127/76
== END 2017-01-26 17:16 | disposition short-term general hospital (02) ==
LOC: ER 08:29
DX: I26.99 Other pulmonary embolism without acute cor pulmonale (principal); R04.0 Epistaxis; I82.509 Chronic embolism and thrombosis of unspecified deep veins of unspecified lower extremity; Z90.710 Acquired absence of both cervix and uterus
CPT/HCPCS: 36415; 71010; 71275; 80053; 81001; 83735; 84484; 85025; 85379; 93005; 96360; 96372; 99291; J1650; J7030; Q9967

== ENCOUNTER 2017-05-03 17:32 | Emergency (ER) | payer SELFPAY ==
[~2017-05-03] VITALS: Ht 157.5 cm; Wt 78.5 kg
[2017-05-03 18:44] LABS: Basophils # (auto) 0.1 uL; Basophils % (auto) 0.9 % (0.0-2.0); CONDITION Y; Eosinophils # (auto) 0.2 uL; Eosinophils % (auto) 2.3 % (0.0-7.0); Hematocrit 41.8 % (36.0-46.0); Hemoglobin 13.9 g/dL (12.2-16.2); Lymphocytes # (auto) 3.3 uL; Lymphocytes % (auto) 33.5 % (10.0-50.0); Mean Corpuscular Hgb Conc. 33.2 g/dL (32.0-36.0); Mean Corpuscular Volume 90.4 fL (80.0-100.0); Mean Platelet Volume 8.5 fL (7.4-10.4); Monocytes # (auto) 0.5 uL; Monocytes % (auto) 5.4 % (0.0-12.0); Neutrophils # (auto) 5.6 uL; Neutrophils % (auto) 57.9 % (37.0-80.0); Platelet Count (auto) 418 10^3/uL (140-450); Red Cell Distribution Width 14.4 % (11.6-16.0); White Blood Cell 9.7 10^3/uL (4.4-10.8)
[2017-05-03 18:58] LABS: Albumin 3.6 g/dL (3.4-5.0); BUN/Creatinine Ratio 20.9; Calcium 8.7 mg/dL (8.5-10.1)
[2017-05-03 18:59] LABS: Bilirubin, Total 0.6 mg/dL (0.2-1.0); Total Protein 7.5 g/dL (6.4-8.2)
[2017-05-03 23:16] LABS: B-Type Natriuretic Peptide 26.13 pg/mL (0-100)
[2017-05-03 23:23] LABS: Temperature: 22.9 C (20.0-25.0)
[2017-05-03] MEDS ORDERED: IOHEXOL 350 MG/ML 100ML IJ ONE (23:58)
[2017-05-04 01:39] VITALS: BP 124/79
== END 2017-05-04 01:40 | disposition home or self-care (01) ==
LOC: ER 17:36
DX: M79.89 Other specified soft tissue disorders (principal); R06.02 Shortness of breath; R53.1 Weakness; Z90.710 Acquired absence of both cervix and uterus; M79.605 Pain in left leg; M79.604 Pain in right leg
CPT/HCPCS: 36415; 71010; 71275; 80053; 83880; 84484; 85025; 93005; 93970; 99285; Q9967

== ENCOUNTER 2018-11-04 08:05 | Day surgery (SDC) | payer OTHER ==
[2018-11-01 12:05] LABS: Urine WBC None Seen /hpf (0 - 5)
[2018-11-01 12:16] LABS: Basophils # (auto) 0.1 uL; Eosinophils # (auto) 0.2 uL; Eosinophils % (auto) 2.4 % (0.0-7.0); Hematocrit 44.7 % (36.0-46.0); Hemoglobin 14.8 g/dL (12.2-16.2); Lymphocytes % (auto) 29.2 % (10.0-50.0); Mean Corpuscular Hemoglobin 31.3 pg (28.0-32.0); Mean Corpuscular Hgb Conc. 33.2 g/dL (32.0-36.0); Mean Corpuscular Volume 94.2 fL (80.0-100.0); Monocytes # (auto) 0.3 uL; Monocytes % (auto) 4.2 % (0.0-12.0); Neutrophils # (auto) 4.3 uL; Neutrophils % (auto) 63.2 % (37.0-80.0); Nucleated Red Blood Cells % 0.1 %; Platelet Count (auto) 344 10^3/uL (140-450); Red Blood Cells 4.74 10^6/uL (4.0-5.20); Red Cell Distribution Width 13.5 % (11.8-14.3); White Blood Cell 6.7 10^3/uL (4.4-10.8)
[2018-11-01 12:22] LABS: Urine Bacteria FEW /hpf (None Seen); Urine Blood Negative /uL (Negative); Urine Mucus FEW (None Seen); Urine Specific Gravity 1.022 (1.001-1.035)
[2018-11-01 12:30] LABS: INR 0.93 (0.9-1.15); Partial Thromboplastin Time 31.7 sec (23.78-33.04)
[2018-11-01 12:32] LABS: Albumin 3.5 g/dL (3.4-5.0); BUN/Creatinine Ratio 18.1; Calcium 8.7 mg/dL (8.5-10.1); Potassium 3.9 mmol/L (3.5-5.1)
[2018-11-01 12:41] LABS: Bilirubin, Total 0.9 mg/dL (0.2-1.0)
[~2018-11-04] VITALS: Ht 157.5 cm; Wt 90.7 kg
[~2018-11-04 08:05] MED LIST: BUPIVACAINE HCL 50 ML ONE; HEPARIN SODIUM (PORCINE) 5000 UNITS/ML 1ML VIAL ONE; HYDROmorphone HCL 2 MG/ML VL IV PRN; KETOROLAC TROMETH 30 MG/ML 1ML VIAL IV ONE; LIDOCAINE 1% HCL (LOCAL ANESTH.) INJ 20ML MDV ONE; MEPERIDINE HCL (50 MG/ML) 1 ML VIAL ONE; METOCLOPRAMIDE HCL 5MG/ml INJ 2ml VIAL IV ONE; METOCLOPRAMIDE HCL 5MG/ml INJ 2ml VIAL ONE; MIDAZOLAM HCL 1MG/1ML-2 ML VIAL ONE; PROPOFOL 10 MG/ML 20 ML IV ONE; ROCURONIUM 10MG/ML 10ML VIAL IV ONE; SODIUM CHLORIDE LOCK 10 ML ONE; fentaNYL CITRATE 100 MCG/2 ML VL ONE
[2018-11-04] MEDS ORDERED: SUCCINYLCHOLINE CHLORIDE 20 MG/ML 10ML VIAL IV ONE (09:12)
[2018-11-04] MEDS ORDERED: LIDOCAINE 1% HCL (LOCAL ANESTH.) INJ 20ML MDV ONE (09:12)
[2018-11-04] MEDS ORDERED: ceFOXitin 2GM/100ML 100 ML IV ONE (09:13)
[2018-11-04] MEDS ORDERED: MIDAZOLAM HCL 1MG/1ML-2 ML VIAL ONE (09:23)
[2018-11-04] MEDS ORDERED: METOCLOPRAMIDE HCL 5MG/ml INJ 2ml VIAL ONE (09:23)
[2018-11-04] MEDS ORDERED: ROCURONIUM 10MG/ML 10ML VIAL IV ONE (09:26)
[2018-11-04] MEDS ORDERED: PROPOFOL 10 MG/ML 20 ML IV ONE (09:26)
[2018-11-04] MEDS ORDERED: fentaNYL CITRATE 100 MCG/2 ML VL ONE (09:36)
[2018-11-04] MEDS ORDERED: HYDROmorphone HCL 2 MG/ML VL IV PRN (09:45)
[2018-11-04] MEDS ORDERED: ONDANSETRON HCL 4 MG/2 ML VIAL IV ONE (09:45)
[2018-11-04] MEDS ORDERED: KETOROLAC TROMETH 30 MG/ML 1ML VIAL ONE (09:54)
[2018-11-04] MEDS ORDERED: NEOSTIGMINE 1 MG/ML INJ (10mg/10ML VIAL) ONE (10:12)
[2018-11-04] MEDS ORDERED: GLYCOPYRROLATE 0.2 MG/ML 1ML VIAL ONE (10:12)
[2018-11-04] MEDS: HYDROmorphone HCL 2 MG/ML VL IV PRN ×4 (10:52→11:44)
[2018-11-04 11:55] VITALS: BP 107/66
== END 2018-11-04 11:58 | disposition home or self-care (01) ==
LOC: SUR 08:05
PROVIDERS: ATTEND Surgery
DX: K80.10 Calculus of gallbladder with chronic cholecystitis without obstruction (principal); I82.409 Acute embolism and thrombosis of unspecified deep veins of unspecified lower extremity; E66.9 Obesity, unspecified; M19.90 Unspecified osteoarthritis, unspecified site; K21.9 Gastro-esophageal reflux disease without esophagitis; G47.33 Obstructive sleep apnea (adult) (pediatric); Z68.36 Body mass index [BMI] 36.0-36.9, adult; Z85.43 Personal history of malignant neoplasm of ovary; Z87.891 Personal history of nicotine dependence; Z98.51 Tubal ligation status; Z90.710 Acquired absence of both cervix and uterus; Z90.721 Acquired absence of ovaries, unilateral
CPT/HCPCS: 36415; 47562; 80053; 81001; 85025; 85610; 85730; 86850; 86900; 86901; 88304; A6257; C1769; J0330; J0694; J1170; J1644; J1885; J2001; J2175; J2250; J2405; J2704; J2765; J3010; J3490; J7030